=== PATIENT | female | born 1960 | race Caucasian/White ===

== ENCOUNTER → 2019-06-13 | Outpatient (CLI) | payer OTHER ==
--- NOTE | 2019-06-13 09:29 | RAD ---
CHEST PA LATERAL History: COPD, asthma, shortness of breath Comparison: None. Findings: 2 views of the chest are submitted. There is no lobar infiltrate, pneumothorax, or effusion. There is mild linear opacity right lung base, likely atelectasis. Pericardial cardiac silhouette is within normal limits in size. Impression: 1. There is likely mild right base atelectasis. Electronically signed by: Sixto Smith MD (06/13/2019 9:25 AM) [id number]
== END | disposition home or self-care (01) ==
LOC: PF 07:45
PROVIDERS: ATTEND Internal Medicine
DX: Z02.71 Encounter for disability determination (principal); J44.9 Chronic obstructive pulmonary disease, unspecified; F17.210 Nicotine dependence, cigarettes, uncomplicated
CPT/HCPCS: 71046; 94010